=== PATIENT | male | born 1985 | race Caucasian/White ===

== ENCOUNTER 2016-08-26 15:15 | Emergency (ER) | payer MEDICARE, MEDICAID ==
[~2016-08-26] VITALS: Ht 185.4 cm; Wt 90.7 kg
[2016-08-26 15:17] VITALS: BP 149/100; PULSE 98; RESP 16; O2SAT 98
--- NOTE | 2016-08-26 16:25 | ED.REPORT ---
HPI-General Illness Date of Service Aug 26, 2016 ED Provider: Aneudy Cardenas PA-C Earl is a 31-year-old male with a history of anxiety presenting with a chief complaint of possible allergic reaction. Patient reports coming into contact with plants in the last several hours to cause his hands to burn, sting, swell and break out in a rash. Patient reports that this caused him increased anxiety. Patient denies lip swelling, tongue swelling or difficulty breathing. Patient also complains of increase in his chronic back pain over the last 3 weeks. He reports that he and his mother are between residencies and spending a great deal of time in the car. Denies numbness, tingling, weakness or pain in lower extremity. Denies fever, DM, HIV, organ transplant, immunosuppression, recent surgery, recent infection, history of back surgery, surgical implants and IV drug use. Denies bowel/bladder dysfunction and saddle anesthesia. His urinary symptoms such as hematuria, dysuria. Nursing Notes Stated Complaint: POSSIBLE ALLERGIC REACTION Chief Complaint: Skin Rash/Abscess Nursing Notes Reviewed: Yes Allergies: Coded Allergies: No Known Allergies (Unverified , 08/26/16) General Time Seen by MD: 15:48 Chief Complaint Allergic reaction Review of Systems Negative unless stated otherwise in history of present illness Physical Exam General: Well appearing, well developed, well nourished, no acute distress. Hands: Papular rash evident on the radial aspect of hands as well as first and second digit bilaterally, mild excoriation. Head: Atraumatic, normocephalic. Eyes: No scleral icterus or injection. No discharge. Vision grossly intact. ENT: Voice clear, hearing grossly intact. Respiratory: Regular rate and rhythm. Breath sounds present, clear to auscultation and equal bilaterally. No respiratory distress. No increased work of breathing, speaks in complete sentences. Cardiovascular: Regular rate and rhythm, without murmur, gallop or rub. No pedal edema. Gastrointestinal: Abdomen flat and non-tender without guarding or rebound. Bowel sounds normoactive. Skin: Warm and dry. Back: Normal to inspection, negative midline spinous process tenderness, negative SI tenderness, negative CVA tenderness. Neurological: Normal gait. Hip flexion, knee extension, ankle dorsiflexion and plantarflexion strength 5/5 B/L. Patellar and Achilles reflexes present and equal B/L. Sensation to sharp touch intact at medial leg, dorsal foot and lateral foot B/L. negative seated straight leg raise, negative seated cross straight leg raise. Psychological: Alert and oriented. Speech appropriate, linear and logical. Behavior appropriate. Vital Signs Vital Signs Date Time Temp Pulse Resp B/P Pulse Ox O2 Delivery O2 Flow Rate FiO2 08/26/16 17:12 36.6 82 20 147/99 99 Room Air 08/26/16 15:17 36.9 98 16 149/100 98 Elevated blood pressure Re-Eval/Medical Decision Med Decision/Clinical Course 31-year-old male with a chief complaint of allergic reaction complains of a rash on both hands after handling bushes with thorns. Also complains of worsening of his chronic low back pain over the last 3 weeks. Papular rash on bilateral hands with minimal redness, excoriation. I believe this is most likely exposure to toxic plants such as stinging nettle. No indication of anaphylaxis, epinephrine as withheld. Treated with topical Benadryl. Physical examination reveals normal neurological examination, nontender back. Back pain is without red flag symptoms for acute disc herniation, cauda equina, infection, hematoma, trauma, pyelonephritis, nephrolithiasis, AAA, cancer. I believe this is musculoskeletal back pain. Patient does not wish to be treated with oral analgesics. Advised Voltaren gel. Advised regarding primary care follow-up, provided referral, provided emergency return precautions. Patient verbalized understanding of, and consent to, the plan. Discharge & Departure Primary Impression: Toxic effect of contact with other venomous plant, undetermined, initial encounter Additional Impressions: Low back pain Chronicity: acute Back pain laterality: bilateral Sciatica presence: without sciatica Qualified Code: M54.5 - Low back pain Elevated blood pressure reading Disposition: Home Discharge Condition All VS Reviewed: Yes Condition: Stable Patient Instructions: Acute Low Back Pain (ED) Additional Instructions: Evaluation in the emergency department for back pain as well as a rash on your hands includes history, physical examination, both of which are reassuring that neither rash nor the back pain are caused by an immediately dangerous condition. I believe the rash is most likely caused by stinging nettle. This should resolve over the next day or so. We can treat this with Benadryl cream. The back pain is an exacerbation of your chronic back pain, without concerning symptoms for a more dangerous condition. EKG do not like taking pills, I recommend using Voltaren gel, an [id number] anti-inflammatory gel. I will also provide her with a referral to her primary care provider, who can help to arrange physical therapy to treat your back pain. Please contact them as soon as possible to arrange to be seen. Return to emergency department for any new or worsening symptoms including increasing pain, fever, loss of bowel/bladder function, numbness between your legs. I also note that your blood pressure was elevated during your visit to the emergency department. Please discuss this with your primary care provider. Referrals: Leonard Martinez MD EDSupervising Provider for APC: Kenney Machuca Seth PA-C Aug 26, 2016 16:25
[2016-08-26] MEDS ORDERED: diphenhydrAMINE-Zinc 2%-0.1% 30 Gm Cream TOPICAL ONE (16:30)
[2016-08-26 17:12] VITALS: BP 147/99; PULSE 82; RESP 20; O2SAT 99
== END 2016-08-26 17:13 | disposition home or self-care (01) ==
LOC: SED 15:15
DX: M54.5 Low back pain (principal); T63.79 Toxic effect of contact with other venomous plant; Y93.89 Activity, other specified; Y92.89 Other specified places as the place of occurrence of the external cause; Y99.8 Other external cause status; R03.0 Elevated blood-pressure reading, without diagnosis of hypertension; F41.9 Anxiety disorder, unspecified